=== PATIENT | male | born 1995 | race Caucasian/White ===

== ENCOUNTER 2019-05-23 11:58 | Emergency (ER) | payer MEDICAID ==
[~2019-05-23] VITALS: Ht 193 cm; Wt 131.5 kg
[2019-05-23 12:09] VITALS: BP_SYST 134
[2019-05-23 13:48] VITALS: BP_SYST 134
== END 2019-05-23 13:48 | disposition home or self-care (01) ==
LOC: SED 11:58
DX: S83.92XA Sprain of unspecified site of left knee, initial encounter (principal); X50.9XXA Other and unspecified overexertion or strenuous movements or postures, initial encounter; Y93.89 Activity, other specified; Y92.89 Other specified places as the place of occurrence of the external cause; Y99.8 Other external cause status
CPT/HCPCS: 73564; 99283